=== PATIENT | male | born 1995 | race African-American/Black ===

== ENCOUNTER 2022-08-28 13:36 | Emergency (ER) | payer OTHER ==
[~2022-08-28] VITALS: Ht 172.7 cm; Wt 63.6 kg
[2022-08-28 13:39] VITALS: BP 104/63
[2022-08-28] MEDS ORDERED: KETOROLAC TROMETHAMINE 30 MG/ML VIAL IM ONE (14:00)
== END 2022-08-28 14:23 | disposition home or self-care (01) ==
LOC: EMS 13:51
DX: G89.29 Other chronic pain (principal); M54.9 Dorsalgia, unspecified; F17.210 Nicotine dependence, cigarettes, uncomplicated; F12.90 Cannabis use, unspecified, uncomplicated
CPT/HCPCS: 99281; J1885